=== PATIENT | male | born 1955 | race Caucasian/White ===

== ENCOUNTER 2020-10-19 01:06 | Day surgery (SDC) | payer MEDICARE, BC, SELFPAY ==
[2020-10-09 15:31] VITALS: BMI 25.7
[2020-10-19 08:24] VITALS: BP 133/72; PULSE 73; RESP 18; TEMP 36.5; O2SAT 97; BMI 26.5
[2020-10-19 08:36] LABS: Glucose Point of Care 116 (65-105)
[2020-10-19] MEDS: LACTATED RINGERS 1,000 ML 150 ML IV CONT (08:39)
--- NOTE | 2020-10-19 08:39 | WPDGICN ---
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 Plan to continue proton pump inhibitor therapy long-term. Surveillance EGD now on at 3 year intervals is advised. Further recommendations may be given after endoscopy is performed. (2) Dysphagia: Code(s): R13.10 - Dysphagia, unspecified Status: Acute Assessment and Plan: Patient complains of food passing slowly through the chest. In the past he has had esophageal web. This will be assessed at time of endoscopy. Dilatation may be required. GI Consult Note Consult date/time: 10/19/20 08:39 HPI: James Thomas is a 65 year old male Presents for surveillance of Hopkins's esophagus. Patient has a longstanding history of GE reflux. He was previously identified as having Hopkins's esophagus. This is felt to be stable. He has been maintained on daily proton pump inhibitor therapy. Currently takes omeprazole 40 mg p.o. daily. Patient over the last several months has had several brief episodes of dysphagia. He states that solid food will him passed slowly through the mid chest. He denies any pain or heartburn. He denies any weight loss or bleeding. Family history is noncontributory. Review of Systems Review of Systems: All systems reviewed & are unremarkable except as noted in HPI and below PMFSH Surgical History Surgical History History of blepharoplasty Family History Family History Grandparent Diabetes mellitus Father Family history of glaucoma Hypertension Other Family history of cardiovascular disease Family history of malignant neoplasm of breast Social History Social History Smoking status: Never smoker Alcohol intake: never Substance use type: does not use Living arrangements: with family Spiritual care concerns: No Meds Home Medications and Allergies Home Medications Medication Instructions Recorded Confirmed Type aspirin 81 mg tablet,delayed 81 mg PO DAILY 10/13/19 10/09/20 History release atorvastatin 40 mg tablet 40 mg PO DAILY 10/13/19 10/09/20 History coenzyme Q10 100 mg capsule 100 mg PO DAILY 10/13/19 10/09/20 History lisinopril 2.5 mg tablet 2.5 mg PO DAILY 10/13/19 10/09/20 History nitroglycerin 0.4 mg sublingual 0.4 mg SUBLINGUAL Q5M PRN 10/13/19 10/09/20 History tablet metformin 500 mg tablet 500 mg PO DAILY #90 tablet 11/02/19 10/09/20 Rx omeprazole 40 mg capsule,delayed 40 mg PO DAILY #90 cap 07/23/20 10/09/20 Rx release fluticasone propionate 50 2 spray NASAL DAILY #15.8 ml 09/05/20 10/09/20 Rx mcg/actuation nasal spray,suspension omega 1-eno-hbf-fish oil [Fish Oil] 1 cap PO DAILY 10/09/20 10/09/20 History tadalafil [Cialis] 5 mg PO EVERY OTHER DAY 10/09/20 10/09/20 History Allergies Allergy/AdvReac Type Severity Reaction Status Date / Time No Known Allergies Allergy Unknown Verified 10/19/20 08:22 Vital Signs Vital Signs - 24 hr 10/19/20 08:24 Temperature 97.7 F Pulse Rate 73 Respiratory Rate 18 Blood Pressure 133/72 Pulse Oximetry 97 Exam Narrative: Exam Narrative: Physical exam reveals patient to be alert. Vital signs stable. HEENT exam unremarkable. Lungs are clear to auscultation and percussion. Heart is without murmur or extra sounds. Abdominal exam bowel sounds are present soft nontender with no organomegaly. Digital external rectal exam is normal.
--- NOTE | 2020-10-19 09:06 | WPDANESEPPF ---
Anes - Initial Pre Proc Eval Procedure: Operation Date: 10/19/20 09:30 Proposed Procedures p Esophagogastroduodenoscopy - Alberto Ratliff MD Date/Time: 10/19/20 09:06 Surgeon: Alberto Ratliff MD Pre Op Diagnosis: barretts esophagus Patient Data Age: 65 Gender: M Height: 6 ft Weight: 88.7 kg Last Vital Signs Temp 97.7 F 10/19/20 08:24 Pulse 73 10/19/20 08:24 Resp 18 10/19/20 08:24 BP 133/72 10/19/20 08:24 Pulse Ox 97 10/19/20 08:24 Allergies Allergy/AdvReac Type Severity Reaction Status Date / Time No Known Allergies Allergy Unknown Verified 10/19/20 08:22 Home Medications Medication Instructions Recorded Confirmed Type aspirin 81 mg tablet,delayed 81 mg PO DAILY 10/13/19 10/09/20 History release atorvastatin 40 mg tablet 40 mg PO DAILY 10/13/19 10/09/20 History coenzyme Q10 100 mg capsule 100 mg PO DAILY 10/13/19 10/09/20 History lisinopril 2.5 mg tablet 2.5 mg PO DAILY 10/13/19 10/09/20 History nitroglycerin 0.4 mg sublingual 0.4 mg SUBLINGUAL Q5M PRN 10/13/19 10/09/20 History tablet metformin 500 mg tablet 500 mg PO DAILY #90 tablet 11/02/19 10/09/20 Rx omeprazole 40 mg capsule,delayed 40 mg PO DAILY #90 cap 07/23/20 10/09/20 Rx release fluticasone propionate 50 2 spray NASAL DAILY #15.8 ml 09/05/20 10/09/20 Rx mcg/actuation nasal spray,suspension omega 2-eal-aoy-fish oil [Fish Oil] 1 cap PO DAILY 10/09/20 10/09/20 History tadalafil [Cialis] 5 mg PO EVERY OTHER DAY 10/09/20 10/09/20 History Laboratory Tests 10/19/20 08:31 POC Capillary Glucose 116 mg/dl H mg/dl (65-105) Patient hx anesthesia problems: none Family hx anesthesia problems: none PMFSH Past Medical History Medical History (Updated 10/19/20 @ 09:07 by Shravan Carter MD) CAD S/P percutaneous coronary angioplasty Hyperlipidemia Hypertension Malignant neoplasm of prostate Surgical History Surgical History History of blepharoplasty Family History Family History Grandparent Diabetes mellitus Father Family history of glaucoma Hypertension Other Family history of cardiovascular disease Family history of malignant neoplasm of breast Social History Social History Smoking status: Never smoker Alcohol intake: never Substance use type: does not use Living arrangements: with family Spiritual care concerns: No Anes - Eval Final PreProcedure Day of Procedure 10/19/20 09:06 Patient weight: overweight Heart: regular rate and rhythm Lungs: clear to auscultation Airway: Mallampati scale class II Neurological: alert and oriented Last oral intake: >/= 8 hours ASA classification: III Emergent: no Anesthetic plan: proceed Anesthesia type and monitoring: general GIVS and standard monitoring Informed Consent: The patient's anesthetic plan and its attendant risks and benefits were discussed with the patient/family/POA. Questions were solicited and answers provided to the satisfaction of the patient/family/POA.
[2020-10-19 09:22] VITALS: BP 134/92; PULSE 71; RESP 20; O2SAT 99
[2020-10-19 09:32] VITALS: BP 119/62; PULSE 66; RESP 17; O2SAT 100
[2020-10-19 09:42] VITALS: BP 130/89; PULSE 63; RESP 15; O2SAT 100
== END 2020-10-19 09:56 | disposition home or self-care (01) ==
PROVIDERS: Family Provider Family Medicine; PCP Family Medicine; Visit Provider Internal Medicine Gastroenterology
PROC: 0DJ08ZZ Inspection of Upper Intestinal Tract, Via Natural or Artificial Opening Endoscopic (ICD-10-PCS; CPT 43235; principal; 2020-10-19 09:30)
DX: K22.70 Barrett's esophagus without dysplasia (principal); K22.8 Other specified diseases of esophagus; R13.19 Other dysphagia; Z79.82 Long term (current) use of aspirin; Z79.84 Long term (current) use of oral hypoglycemic drugs
CPT/HCPCS: 43239; 43450; 82948; 88305; J2704; J7120

== ENCOUNTER 2022-10-09 05:55 | Outpatient (CLI) | payer MEDICARE, BC, SELFPAY ==
[2022-09-30 08:39] VITALS: BMI 23.8
[2022-10-09 06:17] VITALS: BP 131/75; PULSE 78; RESP 16; TEMP 36.4; O2SAT 100; BMI 23.6
[2022-10-09 06:30] LABS: Glucose Point of Care 108 mg/dl (65-105)
[2022-10-09] MEDS: LACTATED RINGERS 1,000 ML 150 ML IV CONT (06:30)
--- NOTE | 2022-10-09 07:19 | PM.HPGS ---
History of Present Illness History of Present Illness Consent: Risks, benefits, and alternatives have been discussed and questions answered. Patient agrees to proceed with procedure. Chief complaint: neoplasm screening Narrative: James Thomas is a 67 year old male Presents for screening colonoscopy. Patient's current weight appetite and bowel movements are normal. Patient denies abdominal pain. He has had no bleeding. Family history is noncontributory. Patient states that his current weight appetite and bowel movements are normal. Patient's past medical history is significant for diagnosis with Hopkins's esophagus. Currently stable as last EGD was 2020. Review of Systems Review of Systems: All systems reviewed & are unremarkable except as noted in HPI and below PMFSH Past Medical History Medical History CAD S/P percutaneous coronary angioplasty Hepatitis C antibody test negative (~03/08/22) History of chicken pox History of measles Hyperlipidemia Hypertension Malignant neoplasm of prostate Surgical History Surgical History History of blepharoplasty Family History Family History Grandparent Diabetes mellitus Father Family history of glaucoma Hypertension Other Family history of cardiovascular disease Family history of malignant neoplasm of breast Social History Social History (Updated 09/23/22 @ 08:18 by Corrie Dodson MA) Smoking status: Never smoker Alcohol intake: never Substance use type: does not use Lack of Transportation: No Lack of Food: Never True Current Housing: I Have Housing Concerned About Future Housing: No Difficulty Paying Gas/Electric Bills: No Difficulty Paying for Meds: No Currently Unemployed: No Education: Bachelor's Degree Difficulty w/ Childcare or Family Care: No Living arrangements: with family Spiritual care concerns: No Meds Home Medications and Allergies Home Medications Medication Instructions Recorded Confirmed Type aspirin 81 mg tablet,delayed 81 mg PO DAILY 10/13/19 10/09/22 History release (Adult Low Dose Aspirin) atorvastatin 40 mg tablet 40 mg PO DAILY 10/13/19 10/09/22 History coenzyme Q10 100 mg capsule 100 mg PO DAILY 10/13/19 10/09/22 History nitroglycerin 0.4 mg sublingual 0.4 mg sublingual Q5M PRN Chest 10/13/19 10/09/22 History tablet Pain omega 1-yka-ser-fish oil 1,200 mg 1 cap PO DAILY 10/09/20 10/09/22 History (144 mg-216 mg) capsule (Fish Oil) tadalafil 5 mg tablet (Cialis) 5 mg PO EVERY OTHER DAY PRN Sexual 10/09/20 10/09/22 History Activity losartan 50 mg-hydrochlorothiazide 1 tablet PO DAILY 03/21/21 10/09/22 History 12.5 mg tablet fluticasone propionate 50 2 spray intranasal DAILY #15.8 mL 01/20/22 10/09/22 Rx mcg/actuation nasal spray,suspension cholecalciferol (vitamin D3) 50 50 mcg PO DAILY 04/02/22 10/09/22 History mcg (2,000 unit) capsule omeprazole 40 mg capsule,delayed 40 mg PO DAILY #90 caps 07/14/22 10/09/22 Rx release metformin 500 mg tablet 500 mg PO DAILY 09/30/22 10/09/22 History Allergies Allergy/AdvReac Type Severity Reaction Status Date / Time No Known Allergies Allergy Unknown Verified 10/09/22 06:16 Vital Signs Vital Signs - 24 hr 10/09/22 06:17 Temperature 97.6 F Pulse Rate 78 Respiratory Rate 16 Blood Pressure 131/75 Pulse Oximetry 100 Oxygen Delivery Room Air Exam Narrative: Physical exam reveals patient to be alert. Vital signs stable. HEENT exam is unremarkable. Patient is anicteric. Lungs are clear to auscultation and percussion. Heart is without murmur or extra sounds. Abdomen bowel sounds are present soft nontender with no organomegaly. Digital external rectal exam is normal. Assessment and Plan Assessment and plan (1) Hopkins's esophagus without dysplasi
--- NOTE | 2022-10-09 07:24 | WPDANESEPPF ---
Anes - Initial Pre Proc Eval Procedure: Operation Date: 10/09/22 07:30 Proposed Procedures p Screening Colonoscopy - Alberto Ratliff MD Date/Time: 10/09/22 07:24 Surgeon: Alberto Ratliff MD Pre Op Diagnosis: neoplasm screening Patient Data Age: 67 Gender: M Height: 1.85 m Weight: 81.2 kg Last Vital Signs Temp 97.6 F 10/09/22 06:17 Pulse 78 10/09/22 06:17 Resp 16 10/09/22 06:17 BP 131/75 10/09/22 06:17 Pulse Ox 100 10/09/22 06:17 O2 Del Method Room Air 10/09/22 06:17 Allergies Allergy/AdvReac Type Severity Reaction Status Date / Time No Known Allergies Allergy Unknown Verified 10/09/22 06:16 Home Medications Medication Instructions Recorded Confirmed Type aspirin 81 mg tablet,delayed 81 mg PO DAILY 10/13/19 10/09/22 History release (Adult Low Dose Aspirin) atorvastatin 40 mg tablet 40 mg PO DAILY 10/13/19 10/09/22 History coenzyme Q10 100 mg capsule 100 mg PO DAILY 10/13/19 10/09/22 History nitroglycerin 0.4 mg sublingual 0.4 mg sublingual Q5M PRN Chest 10/13/19 10/09/22 History tablet Pain omega 0-ktb-yte-fish oil 1,200 mg 1 cap PO DAILY 10/09/20 10/09/22 History (144 mg-216 mg) capsule (Fish Oil) tadalafil 5 mg tablet (Cialis) 5 mg PO EVERY OTHER DAY PRN Sexual 10/09/20 10/09/22 History Activity losartan 50 mg-hydrochlorothiazide 1 tablet PO DAILY 03/21/21 10/09/22 History 12.5 mg tablet fluticasone propionate 50 2 spray intranasal DAILY #15.8 mL 01/20/22 10/09/22 Rx mcg/actuation nasal spray,suspension cholecalciferol (vitamin D3) 50 50 mcg PO DAILY 04/02/22 10/09/22 History mcg (2,000 unit) capsule omeprazole 40 mg capsule,delayed 40 mg PO DAILY #90 caps 07/14/22 10/09/22 Rx release metformin 500 mg tablet 500 mg PO DAILY 09/30/22 10/09/22 History Laboratory Tests 10/09/22 06:23 POC Capillary Glucose 108 mg/dl H mg/dl (65-105) Patient hx anesthesia problems: none Family hx anesthesia problems: none Results Review: All pre-operative results and documents have been reviewed as part of the pre-operative evaluation. [facility] Past Medical History Medical History CAD S/P percutaneous coronary angioplasty Hepatitis C antibody test negative (~03/08/22) History of chicken pox History of measles Hyperlipidemia Hypertension Malignant neoplasm of prostate Surgical History Surgical History History of blepharoplasty Family History Family History Grandparent Diabetes mellitus Father Family history of glaucoma Hypertension Other Family history of cardiovascular disease Family history of malignant neoplasm of breast Social History Social History (Updated 09/23/22 @ 08:18 by Corrie Dodson MA) Smoking status: Never smoker Alcohol intake: never Substance use type: does not use Lack of Transportation: No Lack of Food: Never True Current Housing: I Have Housing Concerned About Future Housing: No Difficulty Paying Gas/Electric Bills: No Difficulty Paying for Meds: No Currently Unemployed: No Education: Bachelor's Degree Difficulty w/ Childcare or Family Care: No Living arrangements: with family Spiritual care concerns: No Anes - Eval Final PreProcedure Day of Procedure 10/09/22 07:24 Patient weight: normal Heart: regular rate and rhythm Lungs: clear to auscultation Airway: Mallampati scale class II Neurological: alert and oriented Last oral intake: >/= 8 hours ASA classification: III Emergent: no Anesthetic plan: proceed Anesthesia type and monitoring: general GIVS and standard monitoring Results Review: All pre-operative results and documents have been reviewed as part of the pre-operative evaluation. Informed Consent: The patient's anesthetic plan and its attendant risks and benefits were discussed with the nathan
[2022-10-09 07:46] VITALS: BP 100/76; PULSE 77; RESP 16; O2SAT 100
[2022-10-09 07:56] VITALS: BP 110/74; PULSE 70; RESP 19; O2SAT 100
[2022-10-09 08:06] VITALS: BP 118/84; PULSE 68; RESP 19; O2SAT 99
== END 2022-10-09 08:13 | disposition home or self-care (01) ==
LOC: ANHSURGERY 05:56
PROVIDERS: PCP Family Medicine; Visit Provider Internal Medicine Gastroenterology
PROC: 0DJD8ZZ Inspection of Lower Intestinal Tract, Via Natural or Artificial Opening Endoscopic (ICD-10-PCS; CPT 45378; principal; 2022-10-09 07:30)
DX: K22.70 Barrett's esophagus without dysplasia (principal); Z12.11 Encounter for screening for malignant neoplasm of colon; Z01.818 Encounter for other preprocedural examination
CPT/HCPCS: 82948; J2704; J7120

== ENCOUNTER 2023-08-01 16:44 | Emergency (ER) | payer MEDICARE, BC, SELFPAY ==
[2023-08-01 17:06] VITALS: BP 149/85; PULSE 62; RESP 18; TEMP 36.3; O2SAT 100
--- NOTE | 2023-08-01 17:08 | ED.EYEPROB ---
HPI - Eye Problem General Chief complaint: Eye Problems Stated complaint: lt eye irritation Time Seen by Provider: 08/01/23 17:00 Source: patient, RN notes reviewed and old records reviewed Mode of arrival: ambulatory Limitations: no limitations History of Present Illness HPI Narrative: 67-year-old male presents to the [facility] with left eye irritation since this morning. Reports that it feels like there is a foreign body in it. Has a history of eyelashes scratching his eye as well as irritation and infection. No treatment prior to arrival. Eyes are tearing. Erythema noted to the conjunctiva. Denies any blurry vision or change in vision. Patient is 2019 left, 2019 right as well as 2019 bilateral Treatments Prior to Arrival: none Related Data Home Medications Medication Instructions Recorded Confirmed aspirin 81 mg tablet,delayed 81 mg PO DAILY 10/13/19 08/01/23 release (Adult Low Dose Aspirin) atorvastatin 40 mg tablet 40 mg PO DAILY 10/13/19 08/01/23 coenzyme Q10 100 mg capsule 100 mg PO DAILY 10/13/19 08/01/23 nitroglycerin 0.4 mg sublingual 0.4 mg sublingual Q5M PRN Chest 10/13/19 08/01/23 tablet Pain omega 4-xbt-wdz-fish oil 1,200 mg 1 cap PO DAILY 10/09/20 08/01/23 (144 mg-216 mg) capsule (Fish Oil) tadalafil 5 mg tablet (Cialis) 5 mg PO PRN PRN Sexual Activity 10/09/20 08/01/23 losartan 50 mg-hydrochlorothiazide 1 tablet PO DAILY 03/21/21 08/01/23 12.5 mg tablet cholecalciferol (vitamin D3) 50 50 mcg PO DAILY 04/02/22 08/01/23 mcg (2,000 unit) capsule Allergies Allergy/AdvReac Type Severity Reaction Status Date / Time No Known Allergies Allergy Unknown Verified 08/01/23 16:56 Review of Systems Review of Systems: All systems reviewed & are unremarkable except as noted in HPI and below Constitutional: Constitutional: Reports no additional constitutional complaints Eyes: Eyes: Reports as per HPI ENT: Reports system reviewed and no additional complaints, except as documented Cardiovascular: Cardiovascular: Reports no additional cardiovascular complaints, Denies chest pain and Denies dyspnea Respiratory: Respiratory: Reports no additional respiratory complaints, Denies chest congestion, Denies cough and Denies dyspnea Gastrointestinal: Gastrointestinal: Reports no additional gastrointestinal complaints, Denies abdominal pain, Denies nausea and Denies vomiting Musculoskeletal: Musculoskeletal: Reports no additional musculoskeletal complaints Integumentary/Breasts: Skin/Breast: Reports system reviewed and no additional complaints, except as docu Neurologic: Reports system reviewed and no additional complaints, except as documented Psychiatric: Psychiatric: Reports no additional psychiatric complaints Allergic/Immunologic: Allergic/Immunologic: Reports no additional allergic/immunologic complaints [facility] Past Medical History Medical History CAD S/P percutaneous coronary angioplasty Hepatitis C antibody test negative (~03/08/22) History of chicken pox History of measles Hyperlipidemia Hypertension Malignant neoplasm of prostate Surgical History Surgical History History of blepharoplasty Family History Family History Grandparent Diabetes mellitus Father Family history of glaucoma Hypertension Other Family history of cardiovascular disease Family history of malignant neoplasm of breast Social History Social History Smoking status: Never smoker Alcohol intake: never Substance use type: does not use Lack of Transportation: No Lack of Food: Never True Current Housing: I Have Housing Concerned About Future Housing: No Difficulty Paying Gas/Electric Bills: No Difficulty Paying for Meds: No Currently Unemployed: No Education: Bachelor's Deg
== END 2023-08-01 17:21 | disposition home or self-care (01) ==
PROVIDERS: Emergency Provider Nurse Practitioner; PCP Family Medicine
DX: H57.12 Ocular pain, left eye (principal); E78.5 Hyperlipidemia, unspecified; I10 Essential (primary) hypertension; Z95.1 Presence of aortocoronary bypass graft; Z85.46 Personal history of malignant neoplasm of prostate; Z79.82 Long term (current) use of aspirin
CPT/HCPCS: 99213; A9270; G0463

== ENCOUNTER 2024-05-31 16:38 | Emergency (ER) | payer MEDICARE, BC, SELFPAY ==
--- NOTE | 2024-05-31 16:53 | ECG_ITS ---
Test Date: 2024-05-31 17:02:07 Measurements Intervals [place] Rate: 123 P: 0 MI: 0 QRS: -19 QRSD: 99 T: 60 QT: 303 QTc: 435 Interpretive Statements ATRIAL FIBRILLATION WITH RAPID VENTRICULAR RESPONSE VENTRICULAR COUPLET CONSIDER INFERIOR INFARCT, AGE INDETERMINATE BASELINE ARTIFACT- I, II, III ABNORMAL ECG No previous ECG available for comparison Electronically Signed On 05-31-2024 20:20:33 CDT by Thomas Bond D.O.
--- NOTE | 2024-05-31 16:54 | ED.CHESTPAIN ---
HPI - Chest Pain General Chief Complaint: Chest Pain Stated Complaint: physical exhaustion AFib Source: patient Mode of arrival: ambulatory Limitations: no limitations History of Present Illness HPI narrative: 68-year-old male with a history of CAD/ PTCI presented for complaint of ?physical exhaustion and AFib. ? He states he felt extremely fatigued while working outside in the yard at home today and his smart watch notified him of atrial fibrillation. He currently denies chest pain, palpitations, shortness of breath, dizziness, nausea, vomiting, fevers or recent illness. No history of atrial fibrillation. [employer] is Dr Lozano. Related Data Home Medications Medication Instructions Recorded Confirmed aspirin 81 mg tablet,delayed 81 mg PO DAILY 10/13/19 05/31/24 release (Adult Low Dose Aspirin) atorvastatin 40 mg tablet 40 mg PO DAILY 10/13/19 05/31/24 coenzyme Q10 100 mg capsule 100 mg PO DAILY 10/13/19 05/31/24 nitroglycerin 0.4 mg sublingual 0.4 mg sublingual Q5M PRN Chest 10/13/19 05/31/24 tablet Pain omega 8-rrm-tyi-fish oil 1,200 mg 1 cap PO DAILY 10/09/20 05/31/24 (144 mg-216 mg) capsule (Fish Oil) tadalafil 5 mg tablet (Cialis) 5 mg PO PRN PRN Sexual Activity 10/09/20 05/31/24 losartan 50 mg-hydrochlorothiazide 1 tablet PO DAILY 03/21/21 05/31/24 12.5 mg tablet cholecalciferol (vitamin D3) 50 50 mcg PO DAILY 04/02/22 05/31/24 mcg (2,000 unit) capsule Allergies Allergy/AdvReac Type Severity Reaction Status Date / Time No Known Allergies Allergy Unknown Verified 02/02/24 09:02 Review of Systems Review of Systems: CONSTITUTIONAL: Reports fatigue Denies body aches, fever, chills, or sweats. EYES: Denies visual changes, redness, or discharge. ENT: Denies rhinorrhea, congestion, sore throat, or otalgia. CARDIOVASCULAR: Denies chest pain, palpitations, or edema. RESPIRATORY: Denies cough or dyspnea. GASTROINTESTINAL: Denies abdominal pain, nausea, vomiting, or diarrhea. MUSCULOSKELETAL: Denies back pain, joint pain, or myalgia. NEUROLOGIC: Denies headache, numbness, tingling, or weakness. All systems reviewed & are unremarkable except as noted in HPI and below PMFSH Past Medical History Medical History CAD S/P percutaneous coronary angioplasty Hepatitis C antibody test negative (~03/08/22) History of chicken pox History of measles Hyperlipidemia Hypertension Malignant neoplasm of prostate Surgical History Surgical History History of blepharoplasty Family History Family History Grandparent Diabetes mellitus Father Family history of glaucoma Hypertension Other Family history of cardiovascular disease Family history of malignant neoplasm of breast Social History Social History Smoking status: Never smoker Alcohol intake: never Substance use type: does not use Lack of Transportation: No Lack of Food: Never True Current Housing: I Have Housing Concerned About Future Housing: No Difficulty Paying Gas/Electric Bills: No Difficulty Paying for Meds: No Currently Unemployed: No Education: Bachelor's Degree Difficulty w/ Childcare or Family Care: No Living arrangements: with family Spiritual care concerns: No Comments At time of signature, I have reviewed and agree with nursing past medical, surgical, social and family history unless otherwise noted. Please see nursing chart for further information. There is no relevant family history pertinent to the presenting complaint Exam Narrative: GENERAL: Well-appearing, and in no acute distress. HEAD: Normocephalic, atraumatic. EYES: EOMI. No redness or drainage. Conjunctivae normal. ENT: Mucous membranes pink and moist. CHEST: No respiratory distress. Clear to auscultation. HEART
[2024-05-31 16:59] VITALS: BP 103/64; PULSE 82; RESP 16; TEMP 36.9; O2SAT 97
== END 2024-05-31 17:07 | disposition short-term general hospital (02) ==
LOC: EXPTROY 16:45
PROVIDERS: Emergency Provider Nurse Practitioner Family; PCP Family Medicine
DX: I48.91 Unspecified atrial fibrillation (principal); I10 Essential (primary) hypertension; E78.5 Hyperlipidemia, unspecified; I25.10 Atherosclerotic heart disease of native coronary artery without angina pectoris; Z98.61 Coronary angioplasty status; Z85.46 Personal history of malignant neoplasm of prostate; Z79.82 Long term (current) use of aspirin
CPT/HCPCS: 93005; 99213; G0463

== ENCOUNTER 2024-05-31 17:20 | Emergency (ER) | payer MEDICARE, BC, SELFPAY ==
--- NOTE | ~2024-05-31 | XR_ITS ---
EXAMINATION: XR chest 2V Exam Date/Time: 05/31/2024 18:00 CDT HISTORY: weakness Comparison: 06/11/2007. RESULT: Lines, tubes, and devices: None. Lungs and pleura: Clear. Cardiomediastinal silhouette: Stable. Other: No acute osseous or upper abdominal finding. IMPRESSION: No acute cardiopulmonary process. Reviewed, dictated and finalized at location K.
[2024-05-31 17:23] VITALS: BP 126/73; PULSE 93; RESP 20; TEMP 36.4; O2SAT 98
--- NOTE | 2024-05-31 17:40 | ECG_ITS ---
Test Date: 2024-05-31 17:43:31 Measurements Intervals [place] Rate: 85 P: 67 MN: 149 QRS: -3 QRSD: 93 T: 46 QT: 347 QTc: 415 Interpretive Statements SINUS RHYTHM WITH OCCASIONAL VENTRICULAR PREMATURE COMPLEXES BASELINE ARTIFACT- I, II, III, AVR, AVL, AVF, V1 BORDERLINE ECG Compared to ECG 05/31/2024 17:02:07 Atrial fibrillation no longer present Electronically Signed On 05-31-2024 20:19:41 CDT by Thomas Bond D.O.
[2024-05-31 17:56] LABS: Basophils Percent Auto 0.3 % (0.2-1.2); Eosinophils Percent Auto 0.1 % (0-4.4); Hematocrit 45.2 % (42.0-52.0); Hemoglobin 15.2 g/dL (14.0-18.0); Immature Granulocyte Absolute 0.01 K/mm3 (0.00-0.031); Immature Granulocyte Percent A 0.1 % (0-0.5); Lymphocytes Absolute Auto 1.01 K/mm3 (0.9-3.2); Lymphocytes Percent Auto 14.4 % (18.3-44.2); Mean Corpuscular HGB Conc 33.6 g/dl (32-36); Mean Corpuscular Hemoglobin 35.4 pg (26-34); Mean Corpuscular Volume 105.4 fl (80-100); Monocytes Absolute Auto 0.6 K/mm3 (0.1-0.6); Monocytes Percent Auto 8.7 % (2.6-8.5); Neutrophils Absolute Auto 5.4 K/mm3 (1.3-6.7); Neutrophils Percent Auto 76.4 % (45.5-73.1); Platelet Count Result 190 k/mm3 (150-375); Red Blood Count 4.29 M/mm3 (4.6-6.20); Red Cell Distribution Width 13.1 % (11.5-14.5)
[2024-05-31 18:05] LABS: Alanine Aminotransferase 31 U/L (6-50); Albumin Level 4.6 g/dL (3.5-5.1); Alkaline Phosphatase 59 U/L (38-126); Anion Gap 7 mmol/L (4-12); Aspartate Amino Transferase 41 U/L (17-59); Bilirubin,Total 0.8 mg/dL (0.2-1.3); Blood Urea Nitrogen 28 mg/dL (9-20); Calcium 10.1 mg/dL (8.4-10.2); Carbon Dioxide 33 mmol/L (22-30); Chloride 98 mmol/L (98-107); Estimated CRCL calculation 47 ml/min; Estimated Glomerular Filt Rate 47; Glucose 95 mg/dL (65-110); Sodium 138 mmol/L (137-145)
[2024-05-31] MEDS: SODIUM CHLORIDE 0.9% IV 1,000 ML 999 ML IV CONT (18:19)
--- NOTE | 2024-05-31 18:27 | ED.WEAKNESS ---
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 He started to feel fatigued. His level watch told him he was in AFib. He went to urgent care and was told he was in AFib and sent to the ER. No previous history of this. He is not have any symptoms currently. Denies chest pain, shortness of breath, or palpitations. Related Data Home Medications Medication Instructions Recorded Confirmed aspirin 81 mg tablet,delayed 81 mg PO DAILY 10/13/19 05/31/24 release (Adult Low Dose Aspirin) atorvastatin 40 mg tablet 40 mg PO DAILY 10/13/19 05/31/24 coenzyme Q10 100 mg capsule 100 mg PO DAILY 10/13/19 05/31/24 nitroglycerin 0.4 mg sublingual 0.4 mg sublingual Q5M PRN Chest 10/13/19 05/31/24 tablet Pain omega 2-uxz-rha-fish oil 1,200 mg 1 cap PO DAILY 10/09/20 05/31/24 (144 mg-216 mg) capsule (Fish Oil) tadalafil 5 mg tablet (Cialis) 5 mg PO PRN PRN Sexual Activity 10/09/20 05/31/24 losartan 50 mg-hydrochlorothiazide 1 tablet PO DAILY 03/21/21 05/31/24 12.5 mg tablet cholecalciferol (vitamin D3) 50 50 mcg PO DAILY 04/02/22 05/31/24 mcg (2,000 unit) capsule Allergies Allergy/AdvReac Type Severity Reaction Status Date / Time No Known Allergies Allergy Unknown Verified 05/31/24 17:22 Review of Systems Review of Systems: CONSTITUTIONAL: Denies fever CARDIOVASCULAR: Denies chest pain, palpitations, or edema. RESPIRATORY: Denies dyspnea. All systems reviewed & are unremarkable except as noted in HPI and below PMFSH Past Medical History Medical History CAD S/P percutaneous coronary angioplasty Hepatitis C antibody test negative (~03/08/22) History of chicken pox History of measles Hyperlipidemia Hypertension Malignant neoplasm of prostate Surgical History Surgical History History of blepharoplasty Family History Family History Grandparent Diabetes mellitus Father Family history of glaucoma Hypertension Other Family history of cardiovascular disease Family history of malignant neoplasm of breast Social History Social History Smoking status: Never smoker Alcohol intake: never Substance use type: does not use Lack of Transportation: No Lack of Food: Never True Current Housing: I Have Housing Concerned About Future Housing: No Difficulty Paying Gas/Electric Bills: No Difficulty Paying for Meds: No Currently Unemployed: No Education: Bachelor's Degree Difficulty w/ Childcare or Family Care: No Living arrangements: with family Spiritual care concerns: No Exam Narrative: GENERAL: Well-appearing, well-nourished, and in no acute distress. HEAD: Normocephalic, atraumatic. EYES: EOMI. ENT: Nares clear, no rhinorrhea or epistaxis. Mucous membranes moist. Oropharynx without tonsillar hypertrophy exudate or other lesions. CHEST: Clear to auscultation. No respiratory distress. No wheezes rales or rhonchi HEART: Regular rate and rhythm. No murmur heard. Normal peripheral pulses. EXTREMITIES: Normal range of motion. No edema. SKIN: Warm, dry, no rash. NEURO: No focal deficits. Alert and oriented x3. PSYCH: Normal mood and affect Course Course Emergency Course: patient updated on his workup and agrees with plan of care Consultations Consultation #1: Spoke with Dr. Espinoza about patient and workup. He agrees with close outpatient follow-up. Patient will be started on metoprolol and xarelto Date: 05/31/24 Vital Signs Vital signs: Vital Signs
[2024-05-31 18:40] LABS: Partial Thromboplastin Time 26.7 Seconds (22.3-36.8); Prothrombin Time 13.1 Seconds (11.1-14.7)
[2024-05-31 18:54] LABS: Creatine Kinase 205 U/L (55-170)
[2024-05-31 19:07] LABS: Add Urine Microscopic? YES; Appearance Urine Clear (Clear); Bacteria Urine None Seen /hpf; Bilirubin Urine Negative (Negative); Blood Urine Negative (Negative); Color Urine Yellow (Yellow); Glucose Urine UA Negative (Negative); Ketones Urine Trace mg/dL (Negative); Leukocyte Esterase Ur Negative LEU/UL (Negative); Need Manual Microscopic Reviewed; Nitrate Urine Negative (Negative); Non Pathogenic Casts >20; Protein Urine Trace mg/dL (Negative); RBC Urine 0-2 /hpf (0-2); Specific Grav Ur 1.019 (1.001-1.035); Squamous Epithelial Cell Urine None Seen /hpf (Few); WBC Urine 0-5 /hpf (0-3)
[2024-05-31 19:22] VITALS: PULSE 74; RESP 19; O2SAT 99
[2024-05-31 20:19] VITALS: PULSE 67; RESP 12; O2SAT 99
[2024-05-31 20:20] VITALS: BP 121/80; PULSE 67; RESP 20; O2SAT 99
[2024-05-31 20:26] VITALS: PULSE 69
== END 2024-05-31 20:40 | disposition home or self-care (01) ==
PROVIDERS: Emergency Medicine; Emergency Provider Physician Assistant; PCP Family Medicine
DX: I48.91 Unspecified atrial fibrillation (principal); I25.10 Atherosclerotic heart disease of native coronary artery without angina pectoris; I10 Essential (primary) hypertension; E78.5 Hyperlipidemia, unspecified; E11.9 Type 2 diabetes mellitus without complications; Z85.46 Personal history of malignant neoplasm of prostate; Z79.899 Other long term (current) drug therapy; Z98.61 Coronary angioplasty status; Z79.82 Long term (current) use of aspirin; Z79.84 Long term (current) use of oral hypoglycemic drugs; I49.3 Ventricular premature depolarization
CPT/HCPCS: 36415; 71046; 80053; 81001; 82550; 85025; 85380; 85610; 85730; 93005; 96360; 96361; 99283; J7030

== ENCOUNTER 2025-05-19 16:09 | Outpatient (CLI) | payer MEDICARE, BC, SELFPAY ==
--- NOTE | ~2025-05-19 | XR_ITS ---
EXAM/ PROCEDURE: XR foot LT min 3V - 05/19/2025 16:25 CDT HISTORY: 69 years old Male with Pain in left foot COMPARISON: None available TECHNIQUE: Four view(s) FINDINGS/ IMPRESSION: There are no fractures or dislocations.Joint space narrowing, subchondral sclerosis, subchondral cyst formation and osteophyte formation, compatible with mild osteoarthritis. Achilles tendon and calcaneal enthesopathy. Reviewed, dictated and finalized at location N.
== END 2025-05-19 16:10 | disposition home or self-care (01) ==
LOC: GOSHIMG 16:11
PROVIDERS: PCP Family Medicine; Visit Provider Nurse Practitioner Family
DX: M79.672 Pain in left foot (principal)
CPT/HCPCS: 73630